=== PATIENT | male | born 1980 | race Two or more races ===

== ENCOUNTER 2022-03-22 12:02 | Emergency (ER) | payer SELFPAY ==
[~2022-03-22] VITALS: Ht 162.6 cm; Wt 82.6 kg
--- NOTE | 2022-03-22 13:36 | NUR ---
Patient discharged to [facility] with ok to book note, stable condition. Written and verbal after care instructions given. Patient and lapd verbalizes understanding of instruction.
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
[2022-03-22 13:41] VITALS: BP 161/79
== END 2022-03-22 13:42 ==
LOC: ER 12:09
DX: V89.2XXA Person injured in unspecified motor-vehicle accident, traffic, initial encounter; Y93.89 Activity, other specified; Y92.89 Other specified places as the place of occurrence of the external cause; Y99.8 Other external cause status